=== PATIENT | male | born 1955 | race Hispanic/Latino ===

== ENCOUNTER 2022-02-22 07:52 | Emergency (ER) | payer OTHER ==
[~2022-02-22] VITALS: Ht 182.9 cm; Wt 99.8 kg
[2022-02-22 08:21] LABS: BASOPHILS % (AUTO) 1.3 % (0.0-5.0); EOSINOPHILS % (AUTO) 2.5 % (0.0-8.0); HEMATOCRIT 42.9 % (42-54); LYMPHOCYTES % (AUTO) 39.6 % (21.0-51.0); MEAN CORPUSCULAR HEMOGLOBIN 30.4 pg (27.0-33.0); MEAN CORPUSCULAR HGB CONC 35.2 g/dL (32.0-36.0); MEAN CORPUSCULAR VOLUME 86.3 fL (79-99); MONOCYTES % (AUTO) 7.9 % (3.0-13.0); NEUTROPHILS % (AUTO) 48.5 % (40.0-77.0); PLATELET COUNT (AUTO) 213 K/uL (130-400); RED BLOOD CELL COUNT(AUTO) 4.97 MIL/uL (4.50-6.20); RED CELL DISTRIBUTION WIDTH 12.6 % (11.0-15.5); WHITE BLOOD COUNT (AUTO) 6.3 K/uL (4.8-10.8)
[2022-02-22 08:31] LABS: CREATININE 1.1 mg/dL (0.5-1.5); POTASSIUM 3.6 mmol/L (3.5-5.1)
[2022-02-22 08:34] LABS: INR 0.98 (0.85-1.15); PROTHROMBIN TIME 10.7 SEC (9.6-11.6)
[2022-02-22 08:35] LABS: PARTIAL THROMBOPLASTIN TIME 27.6 SEC (26.3-35.5); TOTAL PROTEIN, SERUM 7.8 g/dL (6.0-8.3)
[2022-02-22 08:42] LABS: APPEARANCE,URINE CLEAR (CLEAR); BILIRUBIN,URINE NEGATIVE (NEGATIVE); COLOR,URINE YELLOW (YELLOW); GLUCOSE, URINE (UA) NEGATIVE (NEGATIVE); KETONES,URINE NEGATIVE (NEGATIVE); LEUKOCYTE ESTERASE ,URINE NEGATIVE Leu/uL (NEGATIVE); NITRATE,URINE NEGATIVE (NEGATIVE); OCCULT BLOOD,URINE NEGATIVE (NEGATIVE); PH,URINE 5.5 (5.0-8.0); PROTEIN,URINE 20 mg/dL (NEGATIVE); UROBILINOGEN,URINE 0.2 mg/dL (0.2-1.0)
[2022-02-22] MEDS ORDERED: IOHEXOL 350 MG/ML 100ML INFUS..BTL IV ONE (09:01)
[2022-02-22 09:02] LABS: MUCUS,URINE RARE LPF (None Seen); WBC,URINE 0-1 /HPF (0-1)
[2022-02-22 11:00] VITALS: BP 128/89
[2022-02-22] MEDS ORDERED: IBUP-1493 PO (12:06)
[2022-02-22] MEDS ORDERED: CYCL-309 PO (12:06)
== END 2022-02-22 11:00 | disposition left against medical advice (07) ==
LOC: EDH 07:52
DX: S09.90XA Unspecified injury of head, initial encounter (principal); M54.9 Dorsalgia, unspecified; I10 Essential (primary) hypertension; Z98.890 Other specified postprocedural states; V49.69XA Unspecified car occupant injured in collision with other motor vehicles in traffic accident, initial encounter; Y93.89 Activity, other specified; Y92.413 State road as the place of occurrence of the external cause; Y99.8 Other external cause status
CPT/HCPCS: 99285; 70450; 84484; 80053; 85025; 85610; 85730; 81001; 36415; 72125; 71260; 74177; 93005; Q9967